=== PATIENT | female | born 1985 | race Asian ===

== ENCOUNTER 2017-02-10 15:23 | Emergency (ER) | payer MEDICAID ==
[~2017-02-10] VITALS: Ht 162.6 cm; Wt 47.6 kg
--- NOTE | 2017-02-10 16:04 | Diagnostic Imaging Report ---
Indication: Pain Technique: XRAY Hand Complete R Comparison: None Findings: Acute, minimally displaced fracture of the tuft of the fourth distal phalanx. There is minimal comminution. No additional fracture identified. Joint spaces are preserved. No radiopaque foreign body seen. Impression: Acute minimally displaced fracture of the fourth distal phalanx.
[2017-02-10] MEDS ORDERED: NAPROXEN500 M1 ORAL (16:06)
--- NOTE | 2017-02-10 16:07 | Emergency Room Report ---
History of Present Illness General Chief Complaint: Pain Source: Patient Present Illness HPI 31 y/o female c/o injury to right ring finger x last night. States she fell on her hand yesterday night and now has pain at the distal end of her right ring finger. Assoc sxs include limited ROM due to pain, bruising, tenderness and swelling. States that she took 200mg ibuprofen last night and denies wanting medications or taking medications today. States that she has no other physical complaints and denies any head or neck injury / pain. Patient denies any numbness, tingling, pressure, paralysis, cyanosis, loss of sensation, or loss of range of motion. Allergies: Coded Allergies: No Known Allergies (Unverified , 02/10/17) Patient History Past Medical History: see triage record Past Surgical History: none Pertinent Family History: none Last Menstrual Period: 01/19/17 Reviewed Nursing Documentation: PMH: Agreed, PSxH: Agreed Nursing Documentation-PMH Past Medical History: No Stated History Review of Systems All Other Systems: negative except mentioned in HPI Physical Exam Vital Signs Date Time Temp Pulse Resp B/P (MAP) Pulse Ox O2 Delivery O2 Flow Rate FiO2 02/10/17 15:31 97.9 91 18 120/88 96 Room Air Sp02 EP Interpretation: reviewed, normal General Appearance: no apparent distress, alert, GCS 15, non-toxic Head: normocephalic, atraumatic Eyes: bilateral eye normal inspection, bilateral eye PERRL ENT: hearing grossly normal, normal pharynx, no angioedema, normal voice Respiratory: chest non-tender, lungs clear, normal breath sounds, speaking full sentences Cardiovascular #1: regular rate, rhythm, no edema Musculoskeletal: back normal, gait/station normal, normal range of motion, decreased range of motion - dip of right ring finger, swelling - along with echymosis of right ring finger, other - no obvious deformities, tender Neurologic: alert, oriented x3, responsive, motor strength/tone normal, sensory intact, speech normal Psychiatric: judgement/insight normal, memory normal, mood/affect normal, no suicidal/homicidal ideation Skin: normal color, no rash, warm/dry, well hydrated, other, hematoma - dip right ring finger Medical Decision Making PA Attestation Dr. Maldonado my supervising physician with whom patient management has been discussed with. Diagnostic Impression: Primary Impression: Closed fracture of tuft of distal phalanx of finger ER Course Pt. presents to the ED c/o right ring finger pain Ddx considered but are not limited to fracture, contusion, dislocation, sprain, strain Vital signs: are WNL, pt. is afebrile H&PE are most consistent with minimally displaced tuft fracture of right ring finger ORDERS: XR right hand ED INTERVENTIONS: finger splint DISCHARGE: At this time pt. is stable for d/c to home. Will provide printed patient care instructions, and any necessary prescriptions. Care plan and follow up instructions have been discussed with the patient prior to discharge. Other X-Ray Diagnostic Results Other X-Ray Diagnostic Results : # of Views/Limited Vs Complete: 3 View Indication: Pain EP Interpretation: Yes CASS Xray: Interpretation reviewed, by supervising MD, and agrees with findings. Impression: Other - minimally displaced tuft fracture of 4th distal phalynx of right hand. No dislocations Electronically Signed by: Keith Parham PA-C Last Vital Signs Date Time Temp Pulse Resp B/P (MAP) Pulse Ox O2 Delivery O2 Flow Rate FiO2 02/10/17 15:31 97.9 91 18 120/88 96 Room Air Disposition: HOME, SELF-CARE Condition: Stable Scripts Naproxen* (NAPROXEN*) 500 Mg Tablet.dr 500 MG ORAL TWICE A DAY for 10 Days, #20 TAB Prov: KEITH PARHAM 02/10/17 Patient Instructions: Crush Injury, Fingers or Toes, Finger Fracture Additional Instructions: Take medication as directed. Patient advised to follow up with primary care provider within next 3-5 days. Keep splint as directed. Advised patient to use RICE therapy and nsaids as prescribed. Patient is to go to the ER immediately if they experience any pain that is not responding to medication, excess swelling, pressure feeling, loss of color, cyanosis, paralysis, or numbness. KEITH PARHAM Feb 10, 2017 16:07
[2017-02-10 16:33] VITALS: BP 110/74
[2017-02-10 16:35] VITALS: BP 110/74
== END 2017-02-10 16:39 | disposition home or self-care (01) ==
LOC: EMR 15:56
DX: S62.634A Displaced fracture of distal phalanx of right ring finger, initial encounter for closed fracture (principal); W19.XXXA Unspecified fall, initial encounter; Y93.9 Activity, unspecified
CPT/HCPCS: 29130; 99283